=== PATIENT | female | born 1995 | race Caucasian/White ===

== ENCOUNTER 2016-07-13 15:43 | Emergency (ER) | payer OTHER ==
[~2016-07-13 15:43] MED LIST: BENADRYL25 MG/TAB NG; BIRTH CONTROL; CIPRO100 MG; CIPRO500 M1 PO
[2016-07-13] MEDS ORDERED: NORCO 5-325 TA1 EACH PO (18:34)
== END 2016-07-13 18:49 ==
LOC: EDMED 15:43
DX: S16.1XXA Strain of muscle, fascia and tendon at neck level, initial encounter (principal); S00.83XA Contusion of other part of head, initial encounter; V49.40XA Driver injured in collision with unspecified motor vehicles in traffic accident, initial encounter; Y92.410 Unspecified street and highway as the place of occurrence of the external cause